=== PATIENT | female | born 1975 | race Caucasian/White ===

== ENCOUNTER 2019-05-26 17:22 | Emergency (ER) | payer BC, OTHER ==
[2019-05-26] MEDS ORDERED: Codeine/Promethazine 10-6.25 MG/5 ML Syrup 5 ML UD Cup PO ONE (17:23)
[2019-05-26] MEDS ORDERED: Ibuprofen 600 MG Tab PO ONE (17:43)
[2019-05-26 18:21] LABS: ANION GAP 15.4; CHLORIDE,CL 100 mmol/L (101-111); SODIUM,NA 136 mmol/L (135-145)
[2019-05-26 18:40] VITALS: PULSE 94
--- NOTE | 2019-05-26 18:49 | EDM.PDOC ---
Scribed by Keyanna Ghosh 05/26/19 1849 for MaurajeseniaBernadette, JOSÉ MANUEL <Bernadette Salcido - Last Filed: 05/26/19 18:48> ED HPI GENERAL MEDICAL PROBLEM - General Chief Complaint: Cardiovascular Problem Stated Complaint: HBP/COLD Time Seen by Provider: 05/26/19 17:25 Source of Information: Reports: Patient, RN, RN Notes Reviewed History Limitations: Reports: No Limitations - History of Present Illness INITIAL COMMENTS - FREE TEXT/NARRATIVE: A 43-year-old female who presents to the ER with complaints of upper respiratory infection. She reports of a cold and a cough that began during season, got better and worsening in the last couple of days. She reports fever of 99 to 100 and has been taking Tylenol with no relief. Sputum color is yellow. She has not tried anything for her cough. She denies shortness of breath, chest pain, swelling of feet, headaches, dizziness or lightheadedness. She denies any nausea, vomiting, diarrhea or constipation. She admits to sore throat due to coughing spells. Patient's blood pressure is noted to be in 180/110. She reports being treated for hypertension many years ago. Patient reports her PCP told her blood pressure was normal and took her off her blood pressure pills. She has not taken or seen doctor in the past 5 years. Onset: Gradual Duration: Getting Worse Location: Reports: Chest Severity: Moderate Improves with: Reports: None Worsens with: Reports: None Associated Symptoms: Reports: No Other Symptoms - Related Data Allergies Allergy/AdvReac Type Severity Reaction Status Date / Time No Known Allergies Allergy Verified 05/26/19 17:28 Home Meds: Home Meds . [No Known Home Meds] 05/26/19 [History] Past Medical History - Past Health History Medical/Surgical History: Denies Medical/Surgical History Cardiovascular History: Reports: Hypertension Other Gastrointestinal History: glacticymia Social & Family History - Tobacco Use Smoking Status *Q: Never Smoker Second Hand Smoke Exposure: No - Recreational Drug Use Recreational Drug Use: No - Living Situation & Occupation Living situation: Reports: Occupation: Employed ED ROS GENERAL - Review of Systems Review Of Systems: Comprehensive ROS is negative, except as noted in HPI. ED EXAM, GENERAL - Physical Exam Exam: See Below Exam Limited By: No Limitations General Appearance: Alert, WD/WN, Moderate Distress Eye Exam: Bilateral Eye: EOMI, Normal Inspection, PERRL Ears: Normal External Exam, Normal Canal, Hearing Grossly Normal, Normal TMs Nose: Other (green mucus in the left nare. ) Throat/Mouth: Normal Inspection, Normal Lips, Normal Teeth, Normal Gums, Normal Oropharynx, Normal Voice, No Airway Compromise Head: Atraumatic, Normocephalic Neck: Normal Inspection, Supple, Non-Tender, Full Range of Motion Respiratory/Chest: No Respiratory Distress, Lungs Clear, Normal Breath Sounds, No Accessory Muscle Use, Chest Non-Tender Cardiovascular: Tachycardia (at 100. ) Peripheral Pulses: 3+: Radial (L), Radial (R), Dorsalis Pedis (L), Dorsalis Pedis (R) GI/Abdominal: Normal Bowel Sounds, Soft, Non-Tender, No Organomegaly, No Distention, No Abnormal Bruit, No Mass (Female) Exam: Deferred Rectal (Female) Exam: Deferred Back Exam: Normal Inspection, Full Range of Motion, NT Extremities: Normal Inspection, Normal Range of Motion, Non-Tender, Normal Capillary Refill, No Pedal Edema Neurological: Alert, Oriented, CN II-XII Intact, Normal Cognition, Normal Gait, Normal Reflexes, No Motor/Sensory Deficits Psychiatric: Normal Affect, Normal Mood Skin Exam: Warm Lymphatic: No Adenopathy Course - Vital Signs Last Recorded V/S: Last Vital Signs Temp 39.1 C H 05/26/19 18:39 Pulse 94 05/26/19 18:39 Resp 19 05/26/19 18:39 BP 165/100 H 05/26/19 19:15 Pulse Ox 96 05/26/19 18:39 - Orders/Labs/Meds Orders: Active Orders 24 hr Category Date Time Status EKG Documentation Completion [RC] STAT Care 05/26/19 17:33 Active Chest 2V [CR] Urgent Exams 05/26/19 17:33 Taken CULTURE STREP A CONFIRMATION [] Stat Lab 05/26/19 17:30 Results STREP SCRN A RAPID W CULT CONF [] Stat Lab 05/26/19 17:30 Results Labs: Laboratory Tests 05/26/19 05/26/19 05/26/19 Range/Units 17:47 17:47 17:47 WBC 6.3 (5.0-10.0) 10^3/uL RBC 4.25 (4.2-5.4) 10^6/uL Hgb 12.5 (12.0-16.0) g/dL Hct 38.0 (37.0-47.0) % MCV 89.4 (80-100) fL MCH 29.4 (27.0-34.0) pg MCHC 32.9 L (33.0-35.0) g/dL Plt Count 300 (150-450) 10^3/uL Neut % (Auto) 74.4 (42.2-75.2) % Lymph % (Auto) 12.1 L (20.5-50.1) % [place] % (Auto) 12.9 H (2-8) % Eos % (Auto) 0.0 L (1.0-3.0) % Baso % (Auto) 0.6 (0.0-1.0) % Sodium 136 (135-145) mmol/L Potassium 3.4 L (3.6-5.0) mmol/L Chloride 100 L (101-111) mmol/L Carbon Dioxide 24.0 (21.0-31.0) mmol/L Anion Gap 15.4 BUN 8 (7-18) mg/dL Creatinine 0.9 (0.6-1.3) mg/dL Est Cr Clr Drug Dosing 82.49 mL/min Estimated GFR (MDRD) > 60 BUN/Creatinine Ratio 8.88 Glucose 96 (74-105) mg/dL Lactic Acid 0.7 (0.5-2.0) mmol/L Calcium 9.7 (8.4-10.2) mg/dl Total Bilirubin 0.6 (0.2-1.0) mg/dL AST 29 (10-42) IU/L ALT 28 (10-60) IU/L Alkaline Phosphatase 90 (42-121) IU/L Troponin I < 0.02 (0.00-0.02) ng/ml Total Protein 8.0 (6.7-8.2) g/dl Albumin 4.8 (3.2-5.5) g/dl Globulin 3.2 Albumin/Globulin Ratio 1.50 Rapid strep: Negative. Influenza A and B: Negative. Meds: Medications Discontinued Medications Generic Name Dose Route Start Last Admin Trade Name Freq PRN Reason Stop Dose Admin Clonidine HCl 0.1 mg 05/26/19 19:10 05/26/19 19:15 Catapres PO 05/26/19 19:11 0.1 mg ONETIME ONE Administration Ibuprofen 600 mg 05/26/19 17:43 05/26/19 18:09 Motrin PO 05/26/19 17:44 600 mg ONETIME ONE Administration Promethazine HCl/Codeine Confirm 05/26/19 20:35 05/26/19 20:44 Phenergan With Codeine Administered 05/26/19 20:36 Not Given Dose 5 ml .ROUTE .STK-MED ONE - Radiology Interpretation Free Text/Narrative:: Chest x-ray: No acute findings. See rad report. - Re-Assessments/Exams Free Text/Narrative Re-Assessment/Exam: patient turned to Dr. morgan at shift change. Departure - Departure Disposition: Home, Self-Care 01 Clinical Impression: Flu syndrome Hypertension Qualifiers: Hypertension type: unspecified Qualified Code(s): I10 - Essential (primary) hypertension Instructions: Hypertension, [id number] Referrals: Nazanin Castañeda, [employer] [Primary Care Provider] - Forms: ED Department Discharge Additional Instructions: 1) rest as much as possible 2) drink lots of liquids 3) take tylenol or motrin for body aches and fever 4) see clinic tomorrow for BP check and possibly restart BP meds rx given; phenergan codeine syrup qid prn x 4 oz Sepsis Event Note - Evaluation Sepsis Screening Result: No Definite Risk - Focused Exam Vital Signs: Vital Signs Temp Temp Pulse Resp BP BP BP 05/26/19 19:15 165/100 H 05/26/19 18:39 39.1 C H 94 19 164/85 H 05/26/19 18:09 39.2 C H 05/26/19 17:24 38.7 C H 105 H 18 205/103 H 190/113 H Pulse Ox 05/26/19 19:15 05/26/19 18:39 96 05/26/19 18:09 05/26/19 17:24 99 Date Exam was Performed: 05/26/19 Time Exam was Performed: 18:48 <Sotero Morgan - Last Filed: 05/27/19 00:20> Course - Re-Assessments/Exams Free Text/Narrative Re-Assessment/Exam: 05/26/19 19:07 results discussed with pt. 05/26/19 20:26 re-exam: BP 140/84 s/p catapress 0.1mg Departure - Departure Time of Disposition: 20:40 Condition: Good Sepsis Event Note - Focused Exam Date Exam was Performed: 05/27/19 Time Exam was Performed: 00:18 I have read and agree with the documentation that has been completed regarding this visit. By signing this record, I attest that the documentation was completed in my physical presence and is an accurate record of the encounter.
[2019-05-26] MEDS ORDERED: cloNIDine 0.1 MG Tab PO ONE (19:10)
[2019-05-26 19:15] VITALS: BP 165/100
[2019-05-26] MEDS ORDERED: Codeine/Promethazine 10-6.25 MG/5 ML Syrup 5 ML UD Cup ONE (20:35)
== END 2019-05-26 20:40 | disposition home or self-care (01) ==
LOC: DL.ED 17:22
DX: J11.1 Influenza due to unidentified influenza virus with other respiratory manifestations (principal); I10 Essential (primary) hypertension
CPT/HCPCS: 36415; 71046; 80053; 83605; 84484; 85025; 87081; 87430; 87804; 93005; 99284; A9270